=== PATIENT | female | born 1950 ===

== ENCOUNTER 2021-09-23 05:56 | Day surgery (SDC) | payer OTHER ==
[~2021-09-23 05:56] MED LIST: BREO ELLIPTA I1 EACH IH; HUMULIN 70100 UNIT/2 SUBCUTANEO; LEVO-T25 MCG PO; LOSARTAN-HCTZ1 EAC2 PO; NORVASC2.5 MG PO; SINGULAIR5 MG PO; SYNJARDY 5-1,01 EACH PO; VENTOLIN HFA18 GM IH; ZOCOR20 MG PO
== END 2021-09-23 13:35 | disposition home or self-care (01) ==
LOC: CIR.AMB 05:56
PROVIDERS: ATTEND Specialist
DX: N72 Inflammatory disease of cervix uteri (principal); J45.909 Unspecified asthma, uncomplicated; E11.9 Type 2 diabetes mellitus without complications; I10 Essential (primary) hypertension; E03.9 Hypothyroidism, unspecified; E78.00 Pure hypercholesterolemia, unspecified; Z79.4 Long term (current) use of insulin; Z20.822 Contact with and (suspected) exposure to COVID-19